=== PATIENT | female | born 1960 | race Caucasian/White ===

== ENCOUNTER 2017-10-29 10:01 | Emergency (ER) | payer OTHER ==
[~2017-10-29] VITALS: Ht 165.1 cm; Wt 59.8 kg
[2017-10-29] MEDS ORDERED: METOCLOPRAMIDE 5 MG/ML, 2ML ONE (11:26)
[2017-10-29] MEDS ORDERED: DIPHENHYDRAMINE 50 MG/ML, 1ML ONE (11:26)
[2017-10-29] MEDS ORDERED: METOCLOPRAMIDE 5 MG/ML, 2ML IVPush ONE (11:30)
[2017-10-29] MEDS ORDERED: SODIUM CHLORIDE 0.9% 1,000ML IVBOLUS ONE (11:30)
[2017-10-29] MEDS ORDERED: DIPHENHYDRAMINE 50 MG/ML, 1ML IVPush ONE (11:30)
[2017-10-29] MEDS ORDERED: KETOROLAC 30 MG/1 ML IVPush STA (12:12)
[2017-10-29] MEDS ORDERED: KETOROLAC 30 MG/1 ML ONE (12:24)
[2017-10-29 12:26] VITALS: BP 117/74
== END 2017-10-29 13:21 | disposition home or self-care (01) ==
LOC: ED 11:16
DX: G43.C1 Periodic headache syndromes in child or adult, intractable (principal)
CPT/HCPCS: 96361; 96374; 96375; 99284; J1200; J1885; J2765; J7030